=== PATIENT | male | born 1975 | race Caucasian/White ===

== ENCOUNTER 2017-04-23 08:12 | Day surgery (SDC) | payer OTHER ==
[~2017-04-23] VITALS: Ht 185.4 cm; Wt 94.0 kg
[~2017-04-23 08:12] MED LIST: 00186-0370-20 IH; ALBUTEROL0.83 MG/ML IH; FLONASE NASAL S16 GM NS; PRILOSEC 20MG20 MG PO; PRINZIDE 25 MG-1 TAB PO; REQUIP 1MG T1 MG/TAB PO; TRIAMCINOLONE TP; URISED1 TA1 PO; ZOLOFT 100MG100 MG PO; ZYRTEC 10MG10 MG PO
[2017-04-23 08:35] VITALS: BP 131/80; PULSE 67; TEMP 97.8
[2017-04-23] MEDS ORDERED: PROAIR HFA0.09 MG/AC IH (09:19)
[2017-04-23] MEDS ORDERED: PREVACID 30MG30 M1 PO (09:20)
[2017-04-23 10:19] VITALS: BP 111/69; PULSE 70; TEMP 98.4
[2017-04-23 10:30] VITALS: BP 125/82; PULSE 83
[2017-04-23 10:45] VITALS: BP 117/77; PULSE 72
[2017-04-23 10:59] VITALS: BP 99/61; PULSE 69
== END 2017-04-23 11:00 | disposition home or self-care (01) ==
LOC: SDCO 08:12
DX: D50.9 Iron deficiency anemia, unspecified (principal); K21.0 Gastro-esophageal reflux disease with esophagitis; K52.81 Eosinophilic gastritis or gastroenteritis; I10 Essential (primary) hypertension; F32.9 Major depressive disorder, single episode, unspecified; J45.909 Unspecified asthma, uncomplicated; E78.5 Hyperlipidemia, unspecified; G47.33 Obstructive sleep apnea (adult) (pediatric); Z87.891 Personal history of nicotine dependence
CPT/HCPCS: J2250; J3010; J7030

== ENCOUNTER 2020-04-26 06:25 | Outpatient (CLI) | payer OTHER ==
[~2020-04-26] VITALS: Ht 185.5 cm; Wt 98.9 kg
[~2020-04-26 06:25] MED LIST changes: +PREVACID 30MG30 M1 PO; +PROAIR HFA0.09 MG/AC IH
[2020-04-26 07:21] LABS: HEMATOCRIT 44.7 % (42.0-52.0); HEMOGLOBIN 14.4 g/dl (13.5-18.0); MEAN CELL VOLUME 84 fl (80.0-100.0); MEAN CORPUSCULAR HEMOGLOBIN 27 pg (27.0-31.0); MEAN CORPUSCULAR HGB CONC 32 g/dl (33.0-37.0); MEAN PLATELET VOLUME 9.8 fl (7.4-10.4); PLATELET COUNT 324 K/mm3 (130-400); RED BLOOD COUNT 5.33 M/mm3 (4.20-5.60); REDCELL DISTRIBUTION WIDTH-CV 14.8 % (11.5-14.5)
[2020-04-26 07:28] LABS: PROTHROMBIN TIME 11.7 SECONDS (9.7-12.8)
[2020-04-26 07:36] LABS: CALCIUM 9.1 mg/dL (8.4-10.2); CREATININE, serum 0.91 (0.66-1.25)
[2020-04-26] MEDS ORDERED: VENTOLIN0.09 MG IH (08:00)
[2020-04-26] MEDS ORDERED: IPRATROPIUM BROM3 M1 IH (08:08)
[2020-04-26] MEDS ORDERED: TIAZAC120 MG PO (08:08)
[2020-04-26] MEDS ORDERED: SINGULAIR 110 MG/TAB PO (08:10)
[2020-04-26] MEDS ORDERED: NUCALA100 MG/1 M SQ (08:11)
[2020-04-26 08:21] VITALS: BP 143/91; PULSE 82; TEMP 98.6
[2020-04-26 09:39] VITALS: BP 135/96; PULSE 69
[2020-04-26 09:55] VITALS: BP 138/87; PULSE 68
[2020-04-26 10:10] VITALS: BP 138/94; PULSE 66
[2020-04-26 10:25] VITALS: BP 144/93; PULSE 62
--- NOTE | 2020-04-26 11:02 | NUR ---
Discharge instructions given to pt.Pt verbalizes understanding.INT removed,catheter tip intact.
--- NOTE | 2020-04-26 11:03 | NUR ---
Pt escorted out via wheelchair by this nurse.
== END 2020-04-26 11:26 | disposition home or self-care (01) ==
LOC: COL.RAD 06:25
PROVIDERS: Internal Medicine Cardiovascular Disease
DX: I08.0 Rheumatic disorders of both mitral and aortic valves (principal)
CPT/HCPCS: J2704; J7120